=== PATIENT | female | born 1995 ===

== ENCOUNTER 2017-05-28 15:41 | Emergency (ER) | payer OTHER ==
[2017-05-28 16:02] VITALS: PULSE 96; O2SAT 98
--- NOTE | 2017-05-28 17:19 | C.PDOC ---
History Of Present Illness 21 year old female presents to the ED for evaluation of sore throat, painful swallowing, generalized body aches and subjective fever which began last night. Patient states she took Ibuprofen this morning. She denies cough, congestion, difficulty breathing, and difficultly swallowing. Time Seen by Provider: 05/28/17 15:58 Chief Complaint (Nursing): Flu-like Symptoms History Per: Patient History/Exam Limitations: no limitations Onset/Duration Of Symptoms: Hrs Current Symptoms Are (Timing): Still Present Location Of Pain: Throat Associated Symptoms: Fever, Sore Throat. denies: Cough, Nasal Congestion Ear Symptoms: Bilateral: None Additional History Per: Patient Past Medical History Reviewed: Historical Data, Nursing Documentation, Vital Signs Vital Signs: Last Vital Signs Temp 98.1 F 05/28/17 17:30 Pulse 96 H 05/28/17 17:30 Resp 20 05/28/17 17:30 BP 115/79 05/28/17 17:30 Pulse Ox 98 05/28/17 21:38 - Medical History PMH: No Chronic Diseases Surgical History: No Surg Hx Family History: States: Unknown Family Hx - Social History Hx Alcohol Use: No Hx Substance Use: No - Immunization History Hx Tetanus Toxoid Vaccination: No Hx Influenza Vaccination: No Hx Pneumococcal Vaccination: No Review Of Systems Constitutional: Positive for: Fever ENT: Positive for: Throat Pain. Negative for: Nose Congestion, Throat Swelling Respiratory: Negative for: Cough, Shortness of Breath Musculoskeletal: Positive for: Other (generalized body aches ) Physical Exam - Physical Exam Appears: Non-toxic, No Acute Distress Skin: Normal Color, Warm, Dry Head: Atraumatic, Normacephalic Eye(s): bilateral: Normal Inspection Ear(s): Bilateral: Normal Nose: Normal, No Discharge Oral Mucosa: Moist Throat: Erythema, Exudate (tonsillar ), Other (uvula at midline ) Neck: Supple Chest: Symmetrical, No Deformity, No Tenderness Cardiovascular: Rhythm Regular, No Murmur Respiratory: Normal Breath Sounds, No Rales, No Rhonchi, No Wheezing Extremity: Normal ROM, Capillary Refill (less than 2 seconds ) Neurological/Psych: Oriented x3, Normal Speech, Normal Cognition Gait: Steady ED Course And Treatment O2 Sat by Pulse Oximetry: 98 (on RA) Pulse Ox Interpretation: Normal Progress Note: Amoxicillin PO and Motrin PO administered. Rapid Strep test ordered, resulted positive. Infectious Power assay resulted negative. On reassessment, patient is resting comfortably, remains afebrile, is showing no signs of distress and is stable for discharge. Patient is advised to f/u with PMD within 2-5 days for further evaluation. Disposition - Disposition Disposition: HOME/ ROUTINE Disposition Time: 17:16 Condition: STABLE Additional Instructions: Gargle and stay hydrated. Follow up with your primary medical doctor or clinic in 2-5 days for further evaluation. Take medications as prescribed. Return to the emergency department at any time if symptoms persist or worsen. Prescriptions: Amoxicillin 875 mg PO BID #20 tablet Ibuprofen [Motrin] 600 mg PO Q6 PRN #20 tab PRN Reason: Pain, Mild (1-3) Instructions: Strep Throat (ED) Forms: [employer] ([place] ([place]) - Clinical Impression Clinical Impression: Strep pharyngitis - PA / CLINICAL PROFESSOR / Resident Statement MD/DO has reviewed & agrees with the documentation as recorded. - Scribe Statement The provider has reviewed the documentation as recorded by the Scribe (Brooke Scherer) All medical record entries made by the Scribe were at my direction and personally dictated by me. I have reviewed the chart and agree that the record accurately reflects my personal performance of the history, physical exam, medical decision making, and the department course for this patient. I have also personally directed, reviewed, and agree with the discharge instructions and disposition.
[2017-05-28 17:31] VITALS: BP 115/79; RESP 20; TEMP 98.1
== END 2017-05-28 17:39 | disposition home or self-care (01) ==
LOC: C.ER 15:41
DX: J02.0 Streptococcal pharyngitis (principal)

== ENCOUNTER 2017-08-04 10:04 | Emergency (ER) | payer OTHER ==
[2017-08-04 10:15] VITALS: BP 122/82; PULSE 94; RESP 18; TEMP 100.5; O2SAT 99
--- NOTE | 2017-08-04 12:04 | C.PDOC ---
History Of Present Illness 21 y/o female presents to ED with complaints of sore throat, headache, myalgia, subjective fever and cough for 1 day. Patient states she was recently treated for Pharyngitis and completed medication. Patient denies sick contacts, chest pain, sob, nausea, vomiting or any other complaints at this time. Time Seen by Provider: 08/04/17 11:00 Chief Complaint (Nursing): Flu-like Symptoms History Per: Patient History/Exam Limitations: no limitations Onset/Duration Of Symptoms: Days Current Symptoms Are (Timing): Still Present Associated Symptoms: Fever, Cough, Myalgias Past Medical History Reviewed: Historical Data, Nursing Documentation, Vital Signs Vital Signs: Last Vital Signs Temp 100.5 F H 08/04/17 10:12 Pulse 94 H 08/04/17 10:12 Resp 18 08/04/17 10:12 BP 122/82 08/04/17 10:12 Pulse Ox 99 08/04/17 12:08 - Medical History PMH: No Chronic Diseases Surgical History: No Surg Hx Family History: States: No Known Family Hx - Social History Hx Alcohol Use: No Hx Substance Use: No - Immunization History Hx Tetanus Toxoid Vaccination: No Hx Influenza Vaccination: No Hx Pneumococcal Vaccination: No Review Of Systems Constitutional: Positive for: Fever ENT: Positive for: Throat Pain Cardiovascular: Negative for: Chest Pain Respiratory: Positive for: Cough. Negative for: Shortness of Breath Gastrointestinal: Negative for: Nausea, Vomiting Skin: Negative for: Rash Neurological: Positive for: Headache Physical Exam - Physical Exam Additional Physical Exam Comments: Constitutional: No acute distress. Well appearing. Non toxic Head: Normocephalic. Atraumatic. Eyes: PERRL. EOMI. ENT: Moist mucous membranes. Left tonsil enlarged. Mild erythema. No exudates. Neck: Supple. No adenoapthy Cardiovascular: Regular rate and rhythm. Chest: No tenderness. Respiratory: Clear to auscultation bilaterally. GI: Soft. Nontender. Nondistended. Normoactive bowel sounds. No rebound. No guarding. Skin: No rash. Neurologic: Alert, no focal deficit. ED Course And Treatment O2 Sat by Pulse Oximetry: 99 (RA) Pulse Ox Interpretation: Normal Medical Decision Making Medical Decision Making: Plan: Rapid strep test, Tylenol administered Patient discharged with tamaflu Disposition - Disposition Referrals: Robert Altamirano MD [Medical Doctor] - Disposition: HOME/ ROUTINE Disposition Time: 12:05 Condition: STABLE Additional Instructions: Drink increased fluids, gargle with warm salty water several times a day; Tylenol or Motrin for pain. Take Tamiflu. Follow up with your doctor in a few days. Prescriptions: Oseltamivir Phosphate [Tamiflu] 75 mg PO BID #10 capsule Instructions: Flu, Adult (DC) Forms: General Discharge Instructions, [facility] ([place]) - Clinical Impression Clinical Impression: Influenza-like illness - PA / BAR HELPER / Resident Statement MD/DO has reviewed & agrees with the documentation as recorded. - Scribe Statement The provider has reviewed the documentation as recorded by the Scribamadeo Herbert All medical record entries made by the Sujeyibamadeo were at my direction and personally dictated by me. I have reviewed the chart and agree that the record accurately reflects my personal performance of the history, physical exam, medical decision making, and the department course for this patient. I have also personally directed, reviewed, and agree with the discharge instructions and disposition.
--- NOTE | 2017-08-04 12:07 | C.PDOC ---
Time Seen by Provider: 08/04/17 11:00 Chief Complaint (Nursing): Flu-like Symptoms Past Medical History Vital Signs: Last Vital Signs Temp 100.5 F H 08/04/17 10:12 Pulse 94 H 08/04/17 10:12 Resp 18 08/04/17 10:12 BP 122/82 08/04/17 10:12 Pulse Ox 99 08/04/17 12:07 Family History: States: Unknown Family Hx - Social History Hx Alcohol Use: No Hx Substance Use: No - Immunization History Hx Tetanus Toxoid Vaccination: No Hx Influenza Vaccination: No Hx Pneumococcal Vaccination: No ED Course And Treatment O2 Sat by Pulse Oximetry: 99 Medical Decision Making Medical Decision Making: pt with sore throat and flu like symptoms, rapid strep neg, will tx with tamiflu and tylenol. Disposition Counseled Patient/Family Regarding: Studies Performed, Diagnosis, Need For Followup, Rx Given - Disposition Referrals: Robert Altamirano MD [Medical Doctor] - Disposition: HOME/ ROUTINE Disposition Time: 12:05 Condition: STABLE Additional Instructions: Drink increased fluids, gargle with warm salty water several times a day; Tylenol or Motrin for pain. Take Tamiflu. Follow up with your doctor in a few days. Prescriptions: Oseltamivir Phosphate [Tamiflu] 75 mg PO BID #10 capsule Instructions: Flu, Adult (DC) Forms: [facility] ([place]), General Discharge Instructions - Clinical Impression Clinical Impression: Influenza-like illness
== END 2017-08-04 12:11 | disposition home or self-care (01) ==
LOC: C.ER 10:04
DX: J11.1 Influenza due to unidentified influenza virus with other respiratory manifestations (principal)